=== PATIENT | male | born 1945 | race Caucasian/White ===

== ENCOUNTER 2017-01-08 17:32 | Emergency (ER) | payer OTHER ==
[2017-01-08 18:40] LABS: BASOPHIL 0.2 % (0-2); EOSINOPHIL 1.9 % (0-7); HCT 47.2 % (42.0-52.0); HGB 15.9 g/dl (13.2-18.0); MCH 30.2 pg (25.0-31.0); MCHC 33.7 g/dL (32.0-36.0); MCV 89.6 fL (78.0-100.0); MONOCYTE 8.1 % (0-12); MPV 10.7 fL (6.0-9.5); NEUTROPHIL 76.8 % (41-80); PLT 214 K/uL (150-400); RBC 5.27 M/uL (4.70-6.00); RDW 14.6 % (11.5-14.0); WBC 9.3 K/uL (4.0-10.5)
[2017-01-08 18:53] LABS: INR 1.03 (0.9-1.2); PROTHROMBIN TIME 13.1 SECONDS (11.7-14.0); PTT 25.8 SECONDS (23.2-31.4)
[2017-01-08 18:55] LABS: ALBUMIN 4.4 g/dL (3.4-4.8); BILIRUBIN - TOTAL 0.5 mg/dL (0.1-1.0); GLOBULIN (CALCULATION) 2.3 g/dL (2.2-4.2); POTASSIUM 3.9 mmol/L (3.5-5.1); TOTAL PROTEIN 6.7 g/dL (6.4-8.3)
[2017-01-08 18:57] LABS: CKMB 1.56 ng/mL (0.97-4.94); MYOGLOBIN 43 ng/mL (26-65); TROPONIN T < 0.010 ng/mL
[2017-01-08 19:45] LABS: BILIRUBIN NEGATIVE (NEGATIVE); BLOOD NEGATIVE Ery/uL (NEGATIVE); CLARITY CLEAR (CLEAR); COLOR YELLOW (YELLOW); GLUCOSE (U) NORMAL (NORMAL); KETONE (U) TRACE mg/dL (NEGATIVE); LEUKOCYTES NEGATIVE Leu/uL (NEGATIVE); NITRITE NEGATIVE (NEGATIVE); PROTEIN NEGATIVE (NEGATIVE)
== END 2017-01-08 21:04 | disposition home or self-care (01) ==
LOC: FER 17:32
PROVIDERS: Internal Medicine
DX: R51 Headache (principal); R20.2 Paresthesia of skin; I10 Essential (primary) hypertension; Z82.0 Family history of epilepsy and other diseases of the nervous system; Z82.3 Family history of stroke
CPT/HCPCS: 36415; 70450; 71010; 80053; 80061; 81003; 82550; 82553; 83874; 84484; 85025; 85610; 85730; 93005; J1885; J2060; J2175; J2765